=== PATIENT | female | born 1990 | race Caucasian/White ===

== ENCOUNTER 2018-10-25 07:55 | Inpatient (IN) | payer BC ==
[~2018-10-25] VITALS: Ht 167.6 cm; Wt 88.9 kg
[2018-10-25] VITALS (38 sets, daily range): BP systolic 93–143; BP diastolic 52–96
--- NOTE | 2018-10-25 07:55 | NUR ---
WARREN UMANZOR presented to unit via ambulation from home, accompanied by S.O., with c/o LEAKING FLUID,CONTRACTIONS. WARREN UMANZOR weighed, gowned, voided, and to bed. EFHM and TOCO applied, VS taken. WARREN UMANZOR oriented to bed controls, call light, TV, heat, and A/C controls.
--- NOTE | 2018-10-25 08:14 | NUR ---
Dr. Franco called, notified of pt arrival, c/o "pop" and leaking "milky white" fluid around 0530 this am. Notified of SVE, + nitrazine, ctx pattern, hx. No GBS on file, will call office for result as pt does not know either. Orders to admit, get pt epidural, start pitocin following epidural placement.
[2018-10-25] MEDS ORDERED: OXYTOCIN/NORMAL SALINE 500 ML IV SCH ×2 (08:18→13:10)
[2018-10-25] MEDS ORDERED: D5 LR IV SOLUTION 1,000 ML IV ONE (08:18)
[2018-10-25] MEDS ORDERED: D5 LR IV SOLUTION 1,000 ML IV SCH (08:18)
[2018-10-25] MEDS ORDERED: MINERAL OIL CONCENTRATE 99.9% 15 ML UDC TOP PRN (08:30)
[2018-10-25] MEDS ORDERED: SUFENTA 0.6MCG/ML BUPIVA 0.125 100 ML ONE (08:42)
[2018-10-25 08:46] LABS: BASOPHILS % (AUTO) 0 % (0-10); EOSINOPHILS # (AUTO) 0.1 10^3/uL (0.0-0.3); EOSINOPHILS % (AUTO) 1 % (0-10); HEMATOCRIT 38 % (35-52); HEMOGLOBIN 12.6 G/DL (11.5-16.0); LYMPHOCYTES # (AUTO) 2.3 X 10^3 (1.0-4.0); LYMPHOCYTES % (AUTO) 20 % (12-44); MEAN CORPUSCULAR HEMOGLOBIN 29 PG (25-34); MEAN CORPUSCULAR HGB CONC 33 G/DL (32-36); MEAN CORPUSCULAR VOLUME 86 FL (80-99); MEAN PLATELET VOLUME 11.1 FL (7.4-10.4); MONOCYTES # (AUTO) 0.8 X 10^3 (0.0-1.0); MONOCYTES % (AUTO) 7 % (0-12); NEUTROPHILS # (AUTO) 8.7 X 10^3 (1.8-7.8); NEUTROPHILS % (AUTO) 73 % (42-75); PLATELET COUNT 185 10^3/uL (130-400); RED CELL DISTRIBUTION WIDTH 14.3 % (10.0-14.5); WHITE BLOOD COUNT 11.9 10^3/uL (4.3-11.0)
[2018-10-25] MEDS ORDERED: AMPICILLIN FOR IV USE 2,000 MG VIAL ONE (08:52)
[2018-10-25] MEDS ORDERED: WATER (STERILE) FOR INJECTION 20 ML ONE (08:52)
[2018-10-25] MEDS ORDERED: AMPICILLIN FOR IV USE 2,000 MG in WATER (STERILE) FOR INJECTION 14.8 ML IV SCH (08:54)
--- NOTE | 2018-10-25 08:59 | NUR ---
Yennifer Cunningham CRNA here for epidural placement. Procedure explained, consent reviewed and signed by anesthesia. Questions answered to patient's satisfaction. Time out taken to verify correct patient/procedure. Patient up to side of bed, assisted into sitting position. Betadine prep done x3 and sterile drape applied. Local done, see anesthesia record. Test dose given, see anesthesia record for drug and dosage. Epidural catheter secured in place. Epidural placement complete. Assisted back into bed, monitors adjusted. Epidural dosed, see anesthesia record. Epidural of Sufenta/Bupvicaine @12 cc/hr stated per pump. Patient tolerated procedure well.
[2018-10-25] MEDS ORDERED: LACTATED RINGERS 1,000 ML IV SCH (09:26)
[2018-10-25] MEDS ORDERED: diphenhydrAMINE 50 MG/ML INJ (BENADRYL) IV PRN (09:30)
[2018-10-25] MEDS ORDERED: EPIDURAL (SUFENTA 0.6MCG/ML BUPIVA 0.125%) 100 ML BAG EPI SCH (09:30)
[2018-10-25] MEDS ORDERED: ONDANSETRON 4 MG/2 ML (SDV) Z0FRAN IV PRN (09:30)
[2018-10-25] MEDS ORDERED: METOCLOPRAMIDE INJ 10 MG/2 ML (REGLAN) IV PRN (09:30)
[2018-10-25] MEDS ORDERED: NALOXONE 0.4 MG/ML 1 ML (NARCAN) VIAL IV PRN ×2 (09:30)
[2018-10-25 10:41] LABS: BILIRUBIN,URINE NEGATIVE (NEGATIVE); GLUCOSE, URINE (UA) NEGATIVE (NEGATIVE); KETONES,URINE NEGATIVE (NEGATIVE); LEUKOCYTE ESTERASE ,URINE 2+ (NEGATIVE); NITRITE,URINE NEGATIVE (NEGATIVE); PH,URINE 7 (5-9); PROTEIN,URINE 1+ (NEGATIVE); UROBILINOGEN,URINE NORMAL (NORMAL)
[2018-10-25 10:43] LABS: BACTERIA,URINE TRACE /HPF; CLARITY,URINE CLEAR; COLOR,URINE YELLOW; RBC,URINE 0-2 /HPF
[2018-10-25 10:44] LABS: AMORPHOUS SEDIMENT,UR FEW AMOR URATES /LPF
[2018-10-25] MEDS ORDERED: LIDOCAINE 1% INJ 20 ML 20 ML VIAL ONE ×2 (12:03→12:27)
[2018-10-25] MEDS ORDERED: LIDOCAINE/EPI 2% 1:200,00 (XYLOCAINE) 10 ML VIAL ONE (12:03)
[2018-10-25] MEDS ORDERED: AMPICILLIN FOR IV USE 1,000 MG in WATER (STERILE) FOR INJECTION 7.4 ML IV SCH (13:00)
--- NOTE | 2018-10-25 13:10 | History & Physical-OB/GYN ---
History of Present Illness History of Present Illness Reason for visit/HPI at 38 2/7 weeks gestation with SROM Date of Admission Oct 25, 2018 at 08:18 Date Seen by a Provider: Oct 25, 2018 Time Seen by a Provider: 09:20 I consulted on this patient on 10/25/18 13:05 Attending Physician Rizwan Franco DO Admitting Physician Rizwan Franco DO Consult Allergies and Home Medications Allergies Coded Allergies: No Known Drug Allergies (Unverified , 10/25/18) Patient Home Medication List Home Medication List Reviewed: Yes Past Fmlzczg-Ubylvs-Ujphqt Hx Patient Social History Marrital Status: Number of living children: 1 Employed/Student: employed Alcohol Use: Denies Use Smoking Status: Never a Smoker Recent Foreign Travel: No Contact w/other who traveled: No Respiratory No Cardiovascular No Neurological No Reproductive System : Yes Expected Date of Delivery: Nov 06, 2018 Hx : 3 Hx Para: 1 Hx Total # of Abortions (Spona: 1 Hx Reproductive Disorders: No Sexually Transmitted Disease: No HIV/AIDS: No Female Reproductive Disorders: Denies Genitourinary No Gastrointestinal No Musculoskeletal No Endocrine History of Endocrine Disorders: No HEENT History of HEENT Disorders: No Hearing Impairment: Denies Cancer No Psychosocial History of Psychiatric Problem: No Integumentary History of Skin or Integumenta: No Blood Transfusions History of Blood Disorders: No Reviewed Nursing Assessment Reviewed/Agree w Nursing PMH: Yes Review of Systems Constitutional: no symptoms reported, see HPI Physical Exam Physical Exam Vital Signs Capillary Refill : Labs Laboratory Tests 10/25/18 08:35: White Blood Count 11.9H, Red Blood Count 4.41, Hemoglobin 12.6, Hematocrit 38, Mean Corpuscular Volume 86, Mean Corpuscular Hemoglobin 29, Mean Corpuscular Hemoglobin Concent 33, Red Cell Distribution Width 14.3, Platelet Count 185, Mean Platelet Volume 11.1H, Neutrophils (%) (Auto) 73, Lymphocytes (%) (Auto) 20, Monocytes (%) (Auto) 7, Eosinophils (%) (Auto) 1, Basophils (%) (Auto) 0, Neutrophils # (Auto) 8.7H, Lymphocytes # (Auto) 2.3, Monocytes # (Auto) 0.8, Eosinophils # (Auto) 0.1, Basophils # (Auto) 0.0 7/24/19 09:00: Urine Color YELLOW, Urine Clarity CLEAR, Urine pH 7, Urine Specific [place] 1.010L, Urine Protein 1+H, Urine Glucose (UA) NEGATIVE, Urine Ketones NEGATIVE, Urine Nitrite NEGATIVE, Urine Bilirubin NEGATIVE, Urine Urobilinogen NORMAL, Urine Leukocyte Esterase 2+H, Urine RBC (Auto) NEGATIVE, Urine RBC 0-2, Urine WBC 5-10H, Urine Squamous Epithelial Cells 2-5, Urine Crystals PRESENTH, Urine Amorphous Sediment FEW BEST URATESH, Urine Bacteria TRACE, Urine Casts NONE, Urine Mucus NEGATIVE, Urine Culture Indicated YES General Appearance: No Apparent Distress, WD/WN Respiratory: Chest Non Tender, Lungs Clear Cardiovascular: Regular Rate, Rhythm, No Murmur Abdominal: normal bowel sounds, non tender Cervix: WNL Uterus: WNL, Enlarged (Gravid) Pelvic Exam: normal external exam Extremity: Non Tender, No Calf Tenderness Assessment/Plan Assessment and Plan Intrauterine at 39 2/7 weeks 2. SROM 3. GBS Admission Diagnosis Admission Status: Inpatient Order (span 2 midnights) Reason for Inpatient Admission: with SROM RIZWAN FRANCO DO Oct 25, 2018 13:10
[2018-10-25] MEDS ORDERED: BENZOCAINE/MENTHOL (DERMOPLAST) 56 ML CAN TP PRN (13:15)
[2018-10-25] MEDS ORDERED: MEASLES,MUMPS,RUBELLA 1 EA INJ SQ ONE (13:15)
[2018-10-25] MEDS ORDERED: DIBUCAINE (NUPERCAINAL) 1% OINT 30 GM TOP PRN (13:15)
[2018-10-25] MEDS ORDERED: WITCH HAZEL(TUCKS) 40 EA JAR TOP PRN (13:15)
[2018-10-25] MEDS ORDERED: TETANUS,DIPTH,PERTUSS P/F (BOOSTRIX) 0.5 ML VIAL IM ONE (13:15)
[2018-10-25] MEDS ORDERED: CATHETER FLUSH 10 ML SYR IV SCH ×2 (14:00)
[2018-10-25] MEDS: IBUPROFEN 800 MG (MOTRIN) TAB PO SCH ×2 (15:00→22:29)
--- NOTE | 2018-10-25 17:00 | NUR ---
FFU/1, light rubra lochia noted, no clots expressed. Pt assisted to sitting position at side of bed, and then to standing. Ambulates to bathroom without difficulty. +void. Pericare demonstrated. Fresh vpad and underwear on, ice pack to perineum. Fresh gown on. Pt assisted to wheelchair, taken to room 309 accompanied by RN, S.O., infant. Pt and family oriented to room and call light. packet explained. Extra pillows provided. Pt denies needs or concerns at this time.
[2018-10-25] MEDS: ACETAMINOPHEN 500 MG TAB (TYLENOL) PO SCH (18:15)
[2018-10-25] MEDS: DOCUSATE SODIUM 100 MG (COLACE) CAP PO SCH (20:29)
[2018-10-26] MEDS: ACETAMINOPHEN 500 MG TAB (TYLENOL) PO SCH ×2 (00:36→02:35)
[2018-10-26 04:10] VITALS: BP 95/54
[2018-10-26 05:25] LABS: BASOPHILS % (AUTO) 0 % (0-10); EOSINOPHILS # (AUTO) 0.1 10^3/uL (0.0-0.3); EOSINOPHILS % (AUTO) 1 % (0-10); HEMATOCRIT 32 % (35-52); HEMOGLOBIN 10.4 G/DL (11.5-16.0); LYMPHOCYTES # (AUTO) 2.5 X 10^3 (1.0-4.0); LYMPHOCYTES % (AUTO) 22 % (12-44); MEAN CORPUSCULAR HEMOGLOBIN 29 PG (25-34); MEAN CORPUSCULAR HGB CONC 33 G/DL (32-36); MEAN CORPUSCULAR VOLUME 88 FL (80-99); MEAN PLATELET VOLUME 10.4 FL (7.4-10.4); MONOCYTES % (AUTO) 8 % (0-12); NEUTROPHILS # (AUTO) 7.9 X 10^3 (1.8-7.8); NEUTROPHILS % (AUTO) 69 % (42-75); PLATELET COUNT 172 10^3/uL (130-400); RED CELL DISTRIBUTION WIDTH 14.5 % (10.0-14.5); WHITE BLOOD COUNT 11.5 10^3/uL (4.3-11.0)
[2018-10-26] MEDS: IBUPROFEN 800 MG (MOTRIN) TAB PO SCH (06:11)
--- NOTE | 2018-10-26 06:32 | OB Labor & Delivery Record ---
Vag Delivery Note Vag Delivery Note Date of Delivery: 10/26/18 Preoperative Diagnosis: Niurka Boswell is a (27 /Para 3 / 1,Gestational Age (wks)38with [SROM] and GBS Positive Postoperative Diagnosis: Same Surgeon: ELVA CHILDRESS Supervisor Tumbling And Rolling: [None] Anesthesia: [Epidural and Pudendal Block] Delivery Type: [Normal Spontaneous Vaginal Delivery with Midline Episiotomy and Repair] Findings: [] Viable [male] , apgars [], weight [] Lacerations: Midline Episiotomy with standard repair Intact placenta with 3 vessel cord. No nuchal cord, body cord or shoulder dystocia Cytotec 800 mcg placed for hemorrhage prophylaxis Estimated Blood Loss: [300] ml Complications: None Condition: Stable Description of Procedure: The patient is a 27 year old female who presented [with SROM]. She was admitted and informed consent was obtained. Her labor course was unremarkable. She progressed to complete dilatation and began to push. She was then set up for delivery. The infant's head was delivered atraumatically in the [GARY] position. The shoulders and remainder of the infant's body were then delivered without difficulty. Upon delivery, the head was held below the level of the perineum and the mouth and nares were bulb suctioned. The cord was doubly clamped and cut and the infant was handed off to the pediatric staff. An intact placenta with 3-vessel cord delivered via Amy and there was found to be minimal bleeding.~ Vigorous fundal massage was performed and the fundus was found to be firm. IV oxytocin was given. Examination of the vagina and perineum revealed a midline episiotomy was repaired in the usual fashion with 2-0 and b3- 0 vicryl suture. Following the repair, sponge, instrument and needle counts were correct. Mom and baby were both in stable condition in the labor suite. Vitals - Labs Vital Signs - I&O Vital Signs Date Time Temp Pulse Resp B/P (MAP) Pulse Ox O2 Delivery O2 Flow Rate FiO2 10/26/18 04:10 97.4 75 18 95/54 (68) 97 Room Air 10/25/18 23:00 98.1 83 18 123/59 (80) 97 Room Air 10/25/18 18:00 98.4 86 16 117/71 (86) 97 Room Air 7/24/19 14:54 79 18 121/64 (83) Room Air 10/25/18 14:39 72 18 121/67 (85) Room Air 10/25/18 14:24 73 18 124/74 (91) Room Air 10/25/18 14:09 78 18 119/66 (83) Room Air 10/25/18 13:54 98.1 77 18 109/67 (81) Room Air 10/25/18 13:39 82 18 129/62 (84) Room Air 10/25/18 13:24 86 18 143/66 (91) Room Air 10/25/18 13:09 92 18 117/67 (84) Room Air 10/25/18 13:04 97 18 143/73 (96) Room Air 10/25/18 12:40 126 18 123/90 (101) Room Air 10/25/18 12:25 93 18 130/79 (96) Room Air 10/25/18 12:10 88 18 132/72 (92) Room Air 10/25/18 11:55 97.1 90 18 130/76 (94) Room Air 10/25/18 11:40 86 18 135/85 (102) Room Air 10/25/18 11:25 75 18 126/72 (90) Room Air 10/25/18 11:10 77 18 125/83 (97) Room Air 10/25/18 10:55 83 18 116/64 (81) Room Air 10/25/18 10:43 96 18 132/72 (92) Room Air 10/25/18 10:27 107 18 127/73 (91) Room Air 10/25/18 10:07 98 18 122/66 (84) Room Air 10/25/18 10:03 99 18 135/67 (89) 100 Room Air 10/25/18 09:58 99 18 142/66 (91) 100 Room Air 10/25/18 09:53 86 18 115/74 (88) Room Air 10/25/18 09:48 71 18 122/68 (86) 100 Room Air 10/25/18 09:43 73 18 113/66 (82) 100 Room Air 10/25/18 09:39 69 18 93/52 (66) 100 Room Air 10/25/18 09:34 96 18 115/59 (77) 100 Room Air 10/25/18 09:30 100 18 116/68 (84) 100 Room Air 10/25/18 09:27 93 18 115/62 (79) 100 Room Air 10/25/18 09:24 97 18 123/71 (88) 100 Room Air 10/25/18 09:21 110 18 133/88 (103) 100 Room Air 10/25/18 09:18 97.7 94 18 125/82 (96) 100 Room Air 10/25/18 09:15 94 18 118/74 (89) 100 Room Air 10/25/18 09:12 94 18 125/78 (94) 100 Room Air 10/25/18 09:05 90 18 135/96 (109) 100 Room Air 10/25/18 08:12 98.0 93 18 114/85 (95) I & O 10/26/18 07:00 Intake Total 2814.8 ml Balance 2814.8 ml Labs Laboratory Tests 10/25/18 08:35: White Blood Count 11.9H, Red Blood Count 4.41, Hemoglobin 12.6, Hematocrit 38, Mean Corpuscular Volume 86, Mean Corpuscular Hemoglobin 29, Mean Corpuscular Hemoglobin Concent 33, Red Cell Distribution Width 14.3, Platelet Count 185, Mean Platelet Volume 11.1H, Neutrophils (%) (Auto) 73, Lymphocytes (%) (Auto) 20, Monocytes (%) (Auto) 7, Eosinophils (%) (Auto) 1, Basophils (%) (Auto) 0, Neutrophils # (Auto) 8.7H, Lymphocytes # (Auto) 2.3, Monocytes # (Auto) 0.8, Eosinophils # (Auto) 0.1, Basophils # (Auto) 0.0 10/25/18 09:00: Urine Color YELLOW, Urine Clarity CLEAR, Urine pH 7, Urine Specific [place] 1.010L, Urine Protein 1+H, Urine Glucose (UA) NEGATIVE, Urine Ketones NEGATIVE, Urine Nitrite NEGATIVE, Urine Bilirubin NEGATIVE, Urine Urobilinogen NORMAL, Urine Leukocyte Esterase 2+H, Urine RBC (Auto) NEGATIVE, Urine RBC 0-2, Urine WBC 5-10H, Urine Squamous Epithelial Cells 2-5, Urine Crystals PRESENTH, Urine Amorphous Sediment FEW BEST URATESH, Urine Bacteria TRACE, Urine Casts NONE, Urine Mucus NEGATIVE, Urine Culture Indicated YES 10/26/18 05:10: White Blood Count 11.5H, Red Blood Count 3.59L, Hemoglobin 10.4L, Hematocrit 32L , Mean Corpuscular Volume 88, Mean Corpuscular Hemoglobin 29, Mean Corpuscular Hemoglobin Concent 33, Red Cell Distribution Width 14.5, Platelet Count 172, Mean Platelet Volume 10.4, Neutrophils (%) (Auto) 69, Lymphocytes (%) (Auto) 22, Monocytes (%) (Auto) 8, Eosinophils (%) (Auto) 1, Basophils (%) (Auto) 0, Neutrophils # (Auto) 7.9H, Lymphocytes # (Auto) 2.5, Monocytes # (Auto) 1.0, Eosinophils # (Auto) 0.1, Basophils # (Auto) 0.0 ELVA CHILDRESS DO Oct 26, 2018 06:32
--- NOTE | 2018-10-26 06:37 | Discharge Summary ---
Diagnosis/Chief Complaint Date of Admission Oct 25, 2018 at 08:18 Date of Discharge October 26, 2018 Discharge Date: Oct 26, 2018 Discharge Time: 13:00 Admission Diagnosis Admission Diagnosis Intrauterine at 38 2/7 weeks 2. SROM 3. GBS Positive Discharge Diagnosis Intrauterine at 38 2/7 weeks--delivered 2. SROM 3. GBS Positive Reason Hospital Visit at 38 2/7 weeks gestation with SROM Discharge Summary Hospital Course Was the Problem List Reviewed?: Yes Hospital Course Ms. Boswell at 38 2/7 weeks gestation presented to Labor & Delivery with SROM. She was noted to be GBS Positive. IV antibiotics was started. She received an Epidural for antepartum pain management. She progressed to complete, delivered a healthy viable male over a midline episiotomy. The remainder of the day was unremarkable. Day #1 found Ms. Boswell doing quite well. Pain being controlled with oral medications. Her vital signs remained stable throughout her hospitalization. We will discharge her to home with instructions, prescriptions and a follow up appointment. Labs Laboratory Tests 10/25/18 08:35: White Blood Count 11.9H, Mean Platelet Volume 11.1H, Neutrophils # (Auto) 8.7H 10/25/18 09:00: Urine Specific [place] 1.010L, Urine Protein 1+H, Urine Leukocyte Esterase 2+H, Urine WBC 5-10H, Urine Crystals PRESENTH, Urine Amorphous Sediment FEW BEST URATESH 10/26/18 05:10: White Blood Count 11.5H, Neutrophils # (Auto) 7.9H, Red Blood Count 3.59L, Hemoglobin 10.4L, Hematocrit 32L Procedures None. Discharge Physical Examination Allergies: Coded Allergies: No Known Drug Allergies (Unverified , 10/25/18) Vitals & I&Os Vital Signs Date Time Temp Pulse Resp B/P (MAP) Pulse Ox O2 Delivery O2 Flow Rate FiO2 10/26/18 04:10 97.4 75 18 95/54 (68) 97 Room Air General Appearance: Alert, Oriented X3 HEENT: Atraumatic Respiratory: Clear to Auscultation, Normal Air Movement Cardiovascular: Regular Rate, No Murmurs Abdominal: Normal Bowel Sounds, No Tenderness Extremities: No Clubbing, No Cyanosis Skin: No Rashes Neuro: Normal Gait, Normal Speech, Cranial Nerves 3-12 NL Psych/Mental Status: Mental Status NL Discharge Home Medications Reviewed and agree with Discharge Medication list on patient's Discharge In struction sheet Instructions to Patient/Family Please see electronic discharge instructions given to patient. Clinical Quality Measures DVT/VTE Risk/Contraindication: Risk Factor Score Per Nursin RFS Level Per Nursing on Admit: 2=Moderate ELVA CHILDRESS DO Oct 26, 2018 06:37
[2018-10-26] MEDS ORDERED: IBUP-1780 PO (06:40)
[2018-10-26] MEDS ORDERED: DOCU100C37 PO (06:40)
[2018-10-26] MEDS ORDERED: OXC5T PO (06:40)
[2018-10-26] MEDS ORDERED: ACET-77 PO (06:40)
[2018-10-26 08:05] VITALS: BP 101/62
[2018-10-26] MEDS ORDERED: TETANUS,DIPTH,PERTUSS P/F (BOOSTRIX) 0.5 ML VIAL IM ONE (08:15)
[2018-10-26] MEDS: DOCUSATE SODIUM 100 MG (COLACE) CAP PO SCH (08:18)
[2018-10-26 13:05] VITALS: BP 102/68
--- NOTE | 2018-10-26 15:00 | Anesthesia-Regional Post-Op ---
Regional Patient Condition Mental Status: Alert, Oriented x3 Circulation: Same as Pre-Op Headache: Absent Sensation: Full Recovery Motor Block: Absent Post Op Complications Complications None Follow Up Care/Instructions Patient Instructions None needed. Anesthesia/Patient Condition Patient is doing well, no complaints, stable vital signs, no apparent adverse anesthesia problems. No complications reported per nursing. ARTHUR COTO CRNA Oct 26, 2018 15:00
[2018-10-26 15:10] VITALS: BP 102/68
--- NOTE | 2018-10-26 15:10 | NUR ---
Tdap given prior to discharge. Home instructions given. Mom to become boarder due to infant requiring additional day of observation for GBS+.
== END 2018-10-26 15:10 | disposition home or self-care (01) | DRG 807 ==
LOC: WSo 07:55 → LDRP 08:00 → WSo 08:00 → LDRP 08:18 → WSo 08:18 → LDRP 18:47
PROVIDERS: ADMIT Obstetrics & Gynecology; ATTEND Obstetrics & Gynecology
PROC: 10E0XZZ Delivery of Products of Conception, External Approach (ICD-10-PCS; principal; 2018-10-26)
PROC: 0W8NXZZ Division of Female Perineum, External Approach (ICD-10-PCS; 2018-10-26)
DX: O99.824 Streptococcus B carrier state complicating childbirth (principal); Z37.0 Single live birth; Z3A.38 38 weeks gestation of pregnancy; Z23 Encounter for immunization
CPT/HCPCS: 36415; 81000; 85025; 86850; 86900; 86901; 87088; 90715; 99212

== ENCOUNTER 2020-09-04 22:46 | Emergency (ER) | payer BC ==
[~2020-09-04] VITALS: Ht 167.7 cm; Wt 77.1 kg
[~2020-09-04 22:46] MED LIST: ACET-78 PO; DOCU100C37 PO; IBUP-1780 PO; OXC5T PO
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
[2020-09-04] MEDS ORDERED: ONDANSETRON 4 MG/2 ML (SDV) Z0FRAN IVP STA (23:07)
[2020-09-04] MEDS ORDERED: fentaNYL INJ 100 MCG/2 ML AMP IVP STA (23:07)
[2020-09-05] MEDS ORDERED: ACHD5005 PO (00:14)
[2020-09-05 00:20] VITALS: BP 124/88
--- NOTE | 2020-09-05 07:42 | Diagnostic Imaging Report ---
EXAM: ANKLE 3 VIEW LEFT INDICATION: Right ankle fracture. Post splinting. COMPARISON: Right ankle radiographs 09/04/2020. FINDINGS/ IMPRESSION: Again seen is mildly displaced fractures of the distal left tibial metaphysis at and above the level of the tibial plafond. Mildly displaced left medial malleolar fracture. Images acquired through splinting material. Dictated by: Dictated on workstation # [id number]
--- NOTE | 2020-09-05 07:43 | Diagnostic Imaging Report ---
EXAM: ANKLE 3 VIEW LEFT INDICATION: Left ankle trauma and pain. COMPARISON: None. FINDINGS/ IMPRESSION: Comminuted angulated fractures involving the distal left fibular metaphysis at about the level of the tibial plafond. There is also comminuted displaced fractures of the medial malleolus. No radiopaque foreign bodies. Dictated by: Dictated on workstation # [id number]
== END 2020-09-05 00:20 | disposition home or self-care (01) ==
LOC: EDUNIT# 22:46 → ER FS 22:47
DX: S82.842A Displaced bimalleolar fracture of left lower leg, initial encounter for closed fracture (principal); V00.831A Fall from motorized mobility scooter, initial encounter; Y92.410 Unspecified street and highway as the place of occurrence of the external cause
CPT/HCPCS: 29515; 73610